=== PATIENT | male | born 1980 | race American Indian/Alaskan Native ===

== ENCOUNTER 2018-07-08 09:21 | Emergency (ER) | payer MEDICAID ==
[2018-07-08 09:33] VITALS: O2SAT 97; BMI 38.5
--- NOTE | 2018-07-08 11:23 | ED PDOC ---
HPI: Influenza Time Seen by Provider: 07/08/18 10:16 Chief Complaint: Cough, Cold, Congestion Chief Complaint (Provider): Cough, Cold, Congestion History Per: Patient Exam Limitations: no limitations Additional complaint(s):: Patient is a 38 y/o male with history of hypertension who presents to the ED complaining of back pain with associated general body aches including throat pain, chest pain, leg pain, and headache, onset x3 days ago. Patient states that he has a subjective fever at night. He has no other medical complaints. Past Medical History Reviewed: Historical Data, Nursing Documentation, Vital Signs Vital Signs: Last Vital Signs Temp 97 F L 07/08/18 09:31 Pulse 75 07/08/18 09:31 Resp 22 07/08/18 09:31 BP 143/92 H 07/08/18 09:31 Pulse Ox 97 07/08/18 09:31 - Medical History PMH: HTN - Social History Current smoker - smoking cessation education provided: Yes (half pack per day) - Allergies Allergies/Adverse Reactions: Allergies Allergy/AdvReac Type Severity Reaction Status Date / Time No Known Allergies Allergy Verified 07/08/18 09:36 Review of Systems ROS Statement: Except As Marked, All Systems Reviewed And Found Negative Constitutional: Positive for: Fever ENT: Positive for: Throat Pain Cardiovascular: Positive for: Chest Pain Gastrointestinal: Negative for: Abdominal Pain Musculoskeletal: Positive for: Back Pain, Leg Pain Neurological: Positive for: Headache Physical Exam - Reviewed Nursing Documentation Reviewed: Yes Vital Signs Reviewed: Yes - Physical Exam Appears: Positive for: Non-toxic, No Acute Distress Head Exam: Positive for: ATRAUMATIC, NORMOCEPHALIC Skin: Positive for: Normal Color, Warm, DRY Eye Exam: Positive for: EOMI, Normal appearance, PERRL ENT: Positive for: Normal ENT Inspection Neck: Positive for: Normal, Painless ROM Cardiovascular/Chest: Positive for: Regular Rate, Rhythm. Negative for: Murmur Respiratory: Positive for: Normal Breath Sounds. Negative for: Respiratory Distress Gastrointestinal/Abdominal: Positive for: Normal Exam, Soft. Negative for: Tenderness Back: Positive for: Normal Inspection. Negative for: L CVA Tenderness, R CVA Tenderness Extremity: Positive for: Normal ROM. Negative for: Pedal Edema, Deformity Neurologic/Psych: Positive for: Alert, Oriented. Negative for: Motor/Sensory Deficits Medical Decision Making Medical Decision Making: Time: :56 Initial Impression: Flu Initial Plan: --Ibuprofen 600 mg --Influenza A B --Rapid Strep Time: 11:53 --Patient influenza and strep serology came back negative Upon provider reevaluation patient is feeling better, is medically stable, and requires no further treatment in the ED at this time. Patient will be discharged home. Counseling was provided and all questions were answered regarding diagnosis and need for follow up with PMD. There is agreement to discharge plan. Return if symptoms persist or worsen. 12:08 X-ray findings: FINDINGS: LUNGS: No active pulmonary disease. PLEURA: No significant pleural effusion identified. No pneumothorax apparent. CARDIOVASCULAR: Normal. OSSEOUS STRUCTURES: No significant abnormalities. VISUALIZED UPPER ABDOMEN: Normal. OTHER FINDINGS: None. IMPRESSION: No active disease. Scribe Attestation: Documented by Olaf Conway acting as a scribe for Gatito Aponte MD Provider Scribe Attestation: All medical record entries made by the Scribe were at my direction and personally dictated by me. I have reviewed the chart and agree that the record accurately reflects my personal performance of the history, physical exam, medical decision making, and the department course for this patient. I have also personally directed, reviewed, and agree with the discharge instructions and disposition. - ECG O2 Sat by Pulse Oximetry: 97 (RA) Pulse Ox Interpretation: Normal Disposition - Clinical Impression Clinical Impression: Viral illness - Patient ED Disposition Is Patient to be Admitted: No - Disposition Disposition: Routine/Home Disposition Time: 11:53 Condition: STABLE Additional Instructions: follow up with your doctor in 1-2 days for reevaluation take motrin for pain return to the ED with any worsening or concerning symptoms Instructions: Acute Pain, Adult Forms: [employer] (Mauritian)
[2018-07-08] MEDS ORDERED: Albuterol 0.083% Inhal Sol (2.5 mg/3 mL) UD INH ONE (11:57)
--- NOTE | 2018-07-08 12:13 | RAD ---
Date of service: 07/08/2018 HISTORY: cough COMPARISON: No prior. TECHNIQUE: Chest PA and lateral FINDINGS: LUNGS: No active pulmonary disease. PLEURA: No significant pleural effusion identified. No pneumothorax apparent. CARDIOVASCULAR: Normal. OSSEOUS STRUCTURES: No significant abnormalities. VISUALIZED UPPER ABDOMEN: Normal. OTHER FINDINGS: None. IMPRESSION: No active disease.
[2018-07-08 12:41] VITALS: BP 140/82; PULSE 85; RESP 16; TEMP 98.2
== END 2018-07-08 12:41 | disposition home or self-care (01) ==
LOC: H.ER 09:21
DX: B34.9 Viral infection, unspecified (principal); I10 Essential (primary) hypertension